=== PATIENT | female | born 1995 | race Caucasian/White ===

== ENCOUNTER 2019-07-16 21:30 | Emergency (ER) | payer OTHER, SELFPAY ==
--- NOTE | ~2019-07-16 | CT_ITS ---
EXAMINATION: CT abdomen pelvis w con INDICATION: Right lower quadrant abdominal pain TECHNIQUE: Computed tomographic images of the abdomen and pelvis were obtained after the administrati on of 100 cc of Omnipaque 350 intravenous contrast. The dose-length product (DLP) was 189.93 mGy-cm. Automated exposure control and iterative reconstruction technique were employed. COMPARISON: None available FINDINGS: The lung bases are clear. The heart size is normal. The liver, spleen, pancreas, gallbladde r, and adrenal glands are normal. The kidneys are unremarkable. No pathologically enlarged abdominal or pelvic lymph nodes are identified. There is no free intraperitoneal gas or evidence of bowel obstr uction. The appendix is normal. A corpus luteum is noted in the right ovary. A small amount of free f luid in the pelvis is likely physiologic. The visualized osseous structures are unremarkable. IMPRESSION: 1. No CT correlate for the patient's symptoms. Reviewed, dictated and finalized at location A.
[2019-07-16 21:32] VITALS: BP 106/75; PULSE 89; RESP 16; TEMP 36.5; O2SAT 100
[2019-07-16 22:30] LABS: Add Urine Microscopic? YES; Amorphous Sediment Urine Few; Appearance Urine Cloudy (Clear); Bacteria Urine Trace /hpf; Bilirubin Urine Negative (Negative); Blood Urine Negative (Negative); Color Urine Yellow (Yellow); Glucose Urine UA Negative (Negative); Ketones Urine Trace mg/dL (Negative); Leukocyte Esterase Ur Negative LEU/UL (Negative); Mucus Urine Moderate /lpf; Nitrate Urine Negative (Negative); Protein Urine 1+ mg/dL (Negative); RBC Urine 0-2 /hpf (0-2); Specific Grav Ur 1.024 (1.001-1.035); Squamous Epithelial Cell Urine Moderate /hpf (Few); WBC Urine 0-3 /hpf
[2019-07-16 22:36] LABS: Alanine Aminotransferase 12 U/L (4-35); Albumin Level 4.6 g/dL (3.5-5.1); Alkaline Phosphatase 55 U/L (38-126); Aspartate Amino Transferase 20 U/L (14-36); Bilirubin,Total 0.8 mg/dL (0.2-1.3); Blood Urea Nitrogen 11 mg/dL (7-17); Calcium 9.5 mg/dL (8.4-10.2); Carbon Dioxide 22 mmol/L (22-30); Chloride 104 mmol/L (98-107); Estimated Glomerular Filt Rate > 60; Glucose 110 mg/dL (65-105); Lipase 126 U/L (23-300); Potassium 3.7 mmol/L (3.4-5.0); Sodium 135 mmol/L (137-145)
[2019-07-16 22:40] LABS: Basophils Percent Auto 0.4 % (0.2-1.2); Eosinophils Absolute Auto 0.1 K/mm3 (0-0.3); Eosinophils Percent Auto 1.4 % (0-4.4); Hematocrit 39.6 % (37.0-47.0); Hemoglobin 14.2 g/dL (12.0-15.0); Immature Granulocyte Absolute 0.02 K/mm3 (0.00-0.031); Immature Granulocyte Percent A 0.2 % (0-0.5); Lymphocytes Absolute Auto 3.14 K/mm3 (0.9-3.2); Lymphocytes Percent Auto 31.7 % (18.3-44.2); Mean Corpuscular HGB Conc 35.9 g/dl (32-36); Mean Corpuscular Hemoglobin 29.6 pg (26-34); Mean Corpuscular Volume 82.7 fl (80-100); Mean Platelet Volume 11.2 fl (7.4-10.4); Monocytes Absolute Auto 0.6 K/mm3 (0.1-0.6); Monocytes Percent Auto 6.1 % (2.6-8.5); Neutrophils Percent Auto 60.2 % (45.5-73.1); Platelet Count Result 244 k/mm3 (150-375); Red Blood Count 4.79 M/mm3 (4.2-5.4); Red Cell Distribution Width 12.4 % (11.5-14.5); White Blood Count 9.9 K/mm3 (4.5-10.0)
--- NOTE | 2019-07-16 22:42 | ED.ABDPAIN ---
HPI - Abdominal Pain General Chief Complaint: Abdominal Pain Stated Complaint: abd pain Time Seen by Provider: 07/16/19 22:26 Source: patient Mode of arrival: ambulatory Limitations: no limitations History of Present Illness HPI narrative: Patient is a 24-year-old female who presents to the emergency department with complaint of abdominal pain. Patient reports onset of symptoms this morning and the pain has worsened throughout the day. She locates the pain diffusely across the epigastric region, but states it is diffuse throughout her abdomen. She has noticed radiation of pain into her lower back. She reports she has had burning with urination, but that has been present for approximately a month and she has been tested for urinary tract infection and ruled out. Patient is being referred to urologist for further evaluation of her urinary symptoms. Patient reports nausea but denies any vomiting or diarrhea. Patient states the pain seemed to worsen after she ate. MD elicited complaint: abdominal pain Pertinent past history: none Onset (ago): hour(s) Pain Consistency: constant Location: diffuse Radiation: back Associated symptoms: nausea and dysuria Related Data Allergies Allergy/AdvReac Type Severity Reaction Status Date / Time No Known Allergies Allergy Mild Unverified 01/29/11 17:15 Review of Systems Review of Systems: All systems reviewed & are unremarkable except as noted in HPI and below Gastrointestinal: Gastrointestinal: Reports abdominal pain, Denies diarrhea, Reports nausea and Denies vomiting Genitourinary: Genitourinary: Reports dysuria Musculoskeletal: Musculoskeletal: Reports back pain PMFSH Past Medical History Medical History (Updated 07/17/19 @ 00:27 by Christiane Vance MD) No significant past medical history Surgical History Surgical History (Updated 07/16/19 @ 22:46 by Christiane Vance MD) No significant past surgical history Social History Social History (Updated 07/16/19 @ 22:46 by Christiane Vance MD) Smoking status: Never smoker Exam Const: General: cooperative, no acute distress and alert Nutritional Appearance: well nourished Orientation/consciousness: patient oriented x3 Limitations: no limitations Resp: Effort & Inspection: normal respiratory effort Auscultation: clear to auscultation bilaterally Cardio: Rate: regular rate Rhythm: regular rhythm GI: GI Palp: Yes Soft to palpation and Yes Tenderness to palpation present (GI) (Diffuse, greatest in epigastric and right lower quadrant) Auscultation: normal bowel sounds Skin: General skin exam: normal color and no rashes or lesions noted Neuro: General: patient oriented x3 Cognition (Neuro): normal cognition Speech: normal speech Extrem: General: normal to inspection, full ROM and no clubbing, cyanosis or edema Psych: Mental Status: mental status grossly normal Affect: normal affect Attitude: cooperative Course Course Emergency Course: Patient feeling better after acetaminophen and Zofran. No acute abnormalities noted on testing. Advised primary care follow-up. Will discharge home Vital Signs Vital signs: Vital Signs Temperature 97.7 F 07/16/19 21:32 Pulse Rate 89 07/16/19 21:32 Respiratory Rate 16 07/16/19 21:32 Blood Pressure 106/75 07/16/19 21:32 Pulse Oximetry 100 07/16/19 21:32 Temperature 97.7 F 07/16/19 21:32 Pulse Rate 67 07/17/19 00:03 Respiratory Rate 12 07/17/19 00:03 Blood Pressure 97/68 L 07/17/19 00:03 Pulse Oximetry 99 07/17/19 00:03 MDM - Abdominal Pain Lab Data Attestation: I reviewed the patient's lab results. Result diagrams: 07/16/19 22:13 07/16/19 22:14 Labs: Lab Results 07/16/19 07/16/19 07/16/19 Range/Units 22:13 22:13 22:14 WBC 9.9 (4.5-10.0) K/mm3 RBC 4.79 (4.2-5.4) M/mm3 Hgb 14.2 (12.0-15.0) g/dL Hct 39.6 (37.0-47.0) % MCV 82.7 (80-100) fl MCH 29.6 (26-34) pg
[2019-07-16] MEDS: ONDANSETRON INJ 4 MG/2 ML VIAL IV PUSH (22:53)
[2019-07-16 23:15] VITALS: BP 110/71; PULSE 88; RESP 15; O2SAT 99
[2019-07-17 00:03] VITALS: BP 97/68; PULSE 67; RESP 12; O2SAT 99
[2019-07-17 00:40] VITALS: BP 92/58; PULSE 78; RESP 17; TEMP 36.6; O2SAT 98
== END 2019-07-17 00:40 | disposition home or self-care (01) ==
PROVIDERS: Emergency Provider Emergency Medicine; PCP Registered Nurse
DX: R10.13 Epigastric pain (principal)
CPT/HCPCS: 36415; 74177; 80053; 81001; 81025; 83690; 85025; 96374; 96375; 99284; J0131; J2405; Q9967

== ENCOUNTER 2021-03-03 19:45 | Emergency (ER) | payer OTHER, SELFPAY ==
--- NOTE | ~2021-03-03 | CT_ITS ---
EXAMINATION: CT brain wo [facility] EXAM DATE: 03/03/2021 23:47 INDICATION: Syncope, head injury . TECHNIQUE: Spiral CT of the head was performed without contrast. Axial, coronal and sagittal images were reviewed. The dose-length product (DLP) for this examination was 605.33 mGy-cm. The exposure w as tailored according to patient size, and iterative reconstruction (ASIR) was used as additional dos e reduction technique. There is no prior study for comparison. FINDINGS: There is no acute intraparenchymal hemorrhage. No evidence of intraparenchymal brain mass lesion. No evidence of acute infarction. There is no mass effect or midline shift. The ventricles are normal in size. There are no extra-axial collections. There are no acute calvarial fractures. T he orbits are unremarkable. Soft tissue is unremarkable. Small amount of left maxillary sinus debri s. IMPRESSION: No acute intracranial findings. Reviewed, dictated and finalized at location A. [employer]
[2021-03-03 19:50] VITALS: BP 125/76; PULSE 122; RESP 18; TEMP 36.7; O2SAT 100
[2021-03-03 22:30] VITALS: BP 101/66; PULSE 68; TEMP 36.7; O2SAT 100
--- NOTE | 2021-03-03 23:29 | ECG_ITS ---
Measurements Intervals [place] Rate: 62 P: 73 NM: 163 QRS: 81 QRSD: 102 T: 65 QT: 358 QTc: 364 Interpretive Statements SINUS RHYTHM INCOMPLETE RIGHT BUNDLE BRANCH BLOCK BASELINE ARTIFACT- I, II, III, AVR, AVL, AVF BORDERLINE ECG Electronically Signed On 03-04-2021 6:12:34 SIDEHAND by Ashu Laureano D.O.
--- NOTE | 2021-03-03 23:32 | ED.SYNCOPE ---
HPI - Syncope General Chief Complaint: Syncope Stated Complaint: syncope, hit head Time Seen by Provider: 03/03/21 23:18 Source: patient Mode of arrival: ambulatory Limitations: no limitations History of Present Illness HPI narrative: Patient is a 22-year-old female complaining of a syncopal episode, single episode, lasted for approximately few seconds prior to arrival. Patient states that she was sitting position when she suddenly got up felt lightheaded and passed out. Patient admits to hitting her head on the floor. Patient denies neck pain, chest pain, abdominal pain, back pain, pelvic pain or any extremity pain/injury. Patient currently has no complaints at this time. Related Data Allergies Allergy/AdvReac Type Severity Reaction Status Date / Time No Known Allergies Allergy Mild Unverified 01/29/11 17:15 Review of Systems Review of Systems: All systems reviewed & are unremarkable except as noted in HPI and below Constitutional: Constitutional: Denies body ache(s), Denies chills, Denies excessive sweating, Denies fatigue, Denies fever(s), Denies headache(s), Denies lethargy, Denies malaise, Denies weakness and Denies weight loss Eyes: Eyes: Denies blurry vision, Denies change in vision and Denies loss of vision ENT: Denies dizziness, Denies ear discharge, Denies headache(s), Denies lip swelling, Denies epistaxis, Denies nasal congestion, Denies neck pain, Denies throat swelling and Denies tongue swelling Cardiovascular: Cardiovascular: Denies chest pain, Denies chest pain at rest, Denies chest pain with activity, Denies diaphoresis, Denies rapid heart rate, Denies edema, Denies irregular heart rhythm, Denies lightheadedness, Denies palpitations, Denies dyspnea and Denies dyspnea on exertion Respiratory: Respiratory: Denies chest congestion, Denies cough, Denies hemoptysis, Denies dyspnea and Denies dyspnea on exertion Gastrointestinal: Gastrointestinal: Denies abdominal pain, Denies melena, Denies hematochezia, Denies diarrhea, Denies nausea, Denies vomiting and Denies hematemesis Musculoskeletal: Musculoskeletal: Denies abnormal gait, Denies deformity, Denies joint swelling, Denies limited range of motion, Denies neck pain and Denies numbness Neurologic: Denies Abnormal speech present, Denies abnormal gait, Denies confusion, Denies dizziness, Denies headache(s), Denies focal weakness, Denies loss of vision, Denies numbness, Denies Other visual disturbances, Denies Sensory deficit (Neuro) and Denies weakness Psychiatric: Psychiatric: Denies confusion, Denies depression, Denies auditory hallucinations, Denies homicidal ideation and Denies suicidal ideation Endocrine: Endocrine: Denies cold intolerance, Denies excessive sweating, Denies fatigue, Denies heat intolerance and Denies palpitations Hematologic/Lymphatic: Hematologic/Lymphatic: Denies easy bleeding and Denies easy bruising Allergic/Immunologic: Allergic/Immunologic: Denies lip swelling, Denies throat swelling and Denies tongue swelling PMFSH Past Medical History Medical History No significant past medical history Surgical History Surgical History No significant past surgical history Social History Social History Smoking status: Never smoker Exam Const: General: cooperative, healthy appearing, comfortable, no acute distress, well developed, alert and awake; No confusion Orientation/consciousness: oriented to person, oriented to place, oriented to time, patient oriented x3 and No confusion Limitations: no limitations HENMT: Head: normal to inspection, normocephalic and atraumatic Ears: hearing grossly normal bilaterally, TM normal on the right and TM normal on the left General nose exam: Normal external nose present, Normal nares present and No nasal discharge present Face and sinus: dudley
[2021-03-03 23:35] VITALS: PULSE 65
[2021-03-04 00:01] VITALS: BP 91/57; PULSE 61
[2021-03-04 00:02] VITALS: BP 90/63; PULSE 76
[2021-03-04 00:03] VITALS: BP 97/73; PULSE 80
[2021-03-04 00:04] LABS: Basophils Absolute Auto 0.1 K/mm3 (0.0-0.1); Basophils Percent Auto 0.6 % (0.2-1.2); Eosinophils Absolute Auto 0.1 K/mm3 (0-0.3); Eosinophils Percent Auto 1.1 % (0-4.4); Hematocrit 38.6 % (37.0-47.0); Hemoglobin 13.5 g/dL (12.0-15.0); Immature Granulocyte Absolute 0.03 K/mm3 (0.00-0.031); Immature Granulocyte Percent A 0.4 % (0-0.5); Lymphocytes Absolute Auto 2.89 K/mm3 (0.9-3.2); Lymphocytes Percent Auto 35.6 % (18.3-44.2); Mean Corpuscular Hemoglobin 31.4 pg (26-34); Mean Corpuscular Volume 89.8 fl (80-100); Mean Platelet Volume 11.2 fl (7.4-10.4); Monocytes Absolute Auto 0.4 K/mm3 (0.1-0.6); Monocytes Percent Auto 5.4 % (2.6-8.5); Neutrophils Absolute Auto 4.6 K/mm3 (1.3-6.7); Neutrophils Percent Auto 56.9 % (45.5-73.1); Platelet Count Result 205 k/mm3 (150-375); Red Cell Distribution Width 12.3 % (11.5-14.5); White Blood Count 8.1 K/mm3 (4.5-10.0)
[2021-03-04 00:11] LABS: Anion Gap 10 mmol/L (8-16); Blood Urea Nitrogen 9 mg/dL (7-17); Calcium 9.3 mg/dL (8.4-10.2); Carbon Dioxide 25 mmol/L (22-30); Chloride 103 mmol/L (98-107); Estimated CRCL calculation 78 ml/min; Estimated Glomerular Filt Rate > 60; Glucose 98 mg/dL (65-110); Potassium 3.8 mmol/L (3.4-5.0); Sodium 138 mmol/L (137-145)
[2021-03-04 01:12] VITALS: BP 99/66; PULSE 79; RESP 15; O2SAT 99
== END 2021-03-04 01:14 | disposition home or self-care (01) ==
PROVIDERS: Emergency Provider Emergency Medicine; PCP Registered Nurse
DX: R55 Syncope and collapse (principal)
CPT/HCPCS: 36415; 70450; 80048; 81025; 85025; 93005; 99284